=== PATIENT | male | born 1975 | race Caucasian/White ===

== ENCOUNTER 2023-07-14 12:30 | Emergency (ER) | payer BC, SELFPAY ==
[2023-07-14] VITALS (9 sets, daily range): BP systolic 130–155; BP diastolic 72–98; PULSE 68–128; RESP 17–22; TEMP 36.8; O2SAT 92–100; BMI 24.4
[2023-07-14] MEDS: ONDANSETRON 4MG/2ML VIAL 4 MG IV (12:51)
[2023-07-14] MEDS: 0.9 % SODIUM CHLORIDE 1000ML 1,000 ML 999 ML IV (12:51)
--- NOTE | 2023-07-14 13:00 | CT_ITS ---
PROCEDURE INFORMATION: Exam: CT Abdomen And Pelvis With Contrast Exam date and time: 07/14/2023 1:35 PM Age: 48 years old Clinical indication: Abdominal pain; Additional info: Chron's, diffuse pain TECHNIQUE: Imaging protocol: Computed tomography of the abdomen and pelvis with contrast. Radiation optimization: All CT scans at this facility use at least one of these dose optimization techniques: automated exposure control; mA and/or kV adjustment per patient size (includes targeted exams where dose is matched to clinical indication); or iterative reconstruction. Contrast material: ISOVUE; Contrast volume: 75 ml; Contrast route: IV; COMPARISON: No relevant prior studies available. FINDINGS: Liver: Fatty infiltration of the liver. Gallbladder and bile ducts: Normal. No calcified stones. No ductal dilation. Pancreas: Normal. No ductal dilation. Spleen: Normal. No splenomegaly. Adrenal glands: Normal. No mass. Kidneys and ureters: Normal. No hydronephrosis. Stomach and bowel: Mucosal thickening within the distal ascending and transverse colon. No associated inflammatory changes. No proximal obstruction. Likely related to submitted history of Crohn's disease. Terminal ileum normal in appearance. Appendix: No evidence of appendicitis. Intraperitoneal space: Unremarkable. No free air. No significant fluid collection. Vasculature: Unremarkable. No abdominal aortic aneurysm. Lymph nodes: Unremarkable. No enlarged lymph nodes. Urinary bladder: Unremarkable as visualized. Reproductive: Unremarkable as visualized. Bones/joints: Unremarkable. No acute fracture. Soft tissues: Unremarkable. IMPRESSION: Mucosal thickening within the distal ascending and transverse colon. No associated inflammatory changes. No proximal obstruction. Likely related to submitted history of Crohn's disease.
--- NOTE | 2023-07-14 13:02 | HMH.EDGENADL ---
Discharge Plan Disposition Chief Complaint: Nausea/Vomiting/Diarrhea Referrals Follow up/Referrals: Trace Singh [Primary Care Provider] - See instructions Clinical Impressions Clinical Impression: Crohn's colitis Discharge ED Provider: Mychal Izaguirre General Adult HPI General Chief complaint: Nausea/Vomiting/Diarrhea Stated complaint: n/v/d Time Seen by Provider: 07/14/23 12:37 Mode of Arrival: EMS Source of Information: Patient Limitations: No Limitations Description of Symptoms (Recalled from ER Triage Doc. by RN): c/o n/v/d since 6am this morning, states he has a hx of crohns and usually when he has a flare up these are the symptoms that he has, reports having corn last night for supper. History of Present Illness HPI narrative: Patient is a 48-year-old male with past medical history of previous Crohn's disease who presents emergency department for evaluation of abdominal pain, vomiting, diarrhea. Patient states that he has had Crohn's for over a decade, previously on Remicade however has not taken it in many years due to insurance difficulties. He intermittently is on chronic steroids however no other medical therapy. Patient has approximately 2 bowel movements a day, intermittently bloody at baseline. Patient has never had fistulas, has had some laparoscopies however has never had an obstruction, still has his appendix and gallbladder. Since 6 AM this morning he has had diffuse abdominal pain, nonbloody diarrhea, retching and nausea causing him to present here for continued evaluation. Related Data Allergies Allergy/AdvReac Type Severity Reaction Status Date / Time Sulfa (Sulfonamide Allergy Verified 07/14/23 12:41 Antibiotics) [facility] Disclaimer: The information contained in this section may have been updated after the patient was seen, as this information can be updated by other users. Social History Smoking Status: Unknown if ever smoked alcohol intake: never current occupational status: other Travel in the last 8 weeks: None ROS Obtained: Yes Systems reviewed as appropriate & no additional complaints except as documented Physical Exam General General appearance: alert and in distress Head Head exam: atraumatic and normocephalic Eye Eye exam: Present PERRL and EOMI ENT ENT exam: Present mucous membranes moist Neck Neck exam: Present normal inspection Chest Chest inspection: Present normal inspection and symmetric chest wall rise Respiratory Respiratory exam: Present normal lung sounds bilaterally; Absent respiratory distress Cardiovascular Cardiovascular exam: Present regular rate and normal rhythm Abdominal Exam Abdominal exam: Present soft and tenderness (Left periumbilical) exam: Present normal inspection; Absent testicular tenderness or scrotal swelling Extremities Exam Extremities exam: Present normal inspection Neurological Exam Neurological exam: Present alert Psychiatric Psychiatric exam: Present normal affect Skin Skin exam: Present warm and dry Medical Decision Making Richie Inquiry Pt receiving controlled substance: No Vital Signs: 07/14/23 12:31 07/14/23 13:09 07/14/23 13:08 Temperature 98.2 F Temperature Source Oral Pulse Rate 119 H Pulse Rate [Left Radial] 114 H Respiratory Rate 21 20 Blood Pressure 155/92 H Blood Pressure [Right Arm] 143/98 H Blood Pressure Mean 100 Blood Pressure Mean [Right Arm] 113 Blood Pressure Source [Right Arm] Automatic Cuff Blood Pressure Position [Right Arm] Sitting 02 Sat by Pulse Oximetry 100 98 Oxygen Delivery Method Room Air 07/14/23 13:30 07/14/23 14:13 07/14/23 14:30 Temperature Temperature Source Pulse Rate 128 H 127 H 128 H Pulse Rate [Left Radial] Respiratory Rate 22 17 Blood Pressure 155/94 H 139/85 150/96 H Blood Pressure [Right Arm] Blood Pressure Mean 111 103 Blood Pressure Mean [Right Arm] Blood Pressure Source [Right Arm] Blood Pressure Position [Right Arm] 02 Sat by Pulse Oximetry 92 L 92 L 94 L Oxygen Delivery Method Room Air 07/14/23 15:00 07/14/23 15:30 Temperature Temperature Source Pulse Rate 116 H 68 Pulse Rate [Left Radial] Respiratory Rate 19 18 Blood Pressure 132/87 130/78 Blood Pressure [Right Arm] Blood Pressure Mean Blood Pressure Mean [Right Arm] Blood Pressure Source [Right Arm] Blood Pressure Position [Right Arm] 02 Sat by Pulse Oximetry 95 95 Oxygen Delivery Method Lab Data Lab Results 07/14/23 12:24: C-Reactive Protein 14.5 H, Lipase 75 07/14/23 12:48: WBC 20.1 H*, RBC 5.29, Hgb 16.3, Hct 47.7, MCV 90.0, MCH 30.8, MCHC 34.3, RDW 13.0, Plt Count 408, MPV 7.6, Neut % (Auto) 89.9 H, Lymph % (Auto) 6.5 L, [place] % (Auto) 2.5, Eos % (Auto) 0.7, Baso % (Auto) 0.5, Neut # (Auto) 18.1 H, Lymph # (Auto) 1.3, [place] # (Auto) 0.5, Eos # (Auto) 0.1, Baso # (Auto) 0.1, Total Counted 100, Neutrophils % (Manual) 84 H, Lymphocytes % (Manual) 12, Monocytes % (Manual) 4, Platelet Estimate Normal, RBC Morphology Normal, ESR 5, Sodium 142, Potassium 3.7, Chloride 103, Carbon Dioxide 24, Anion Gap 18.7 H, BUN 21 H, Creatinine 0.90, Estimated Creat Clear 110, Estimated GFR 89, Est GFR ( Amer) 108, Glucose 119 H, Calcium 9.2, Total Bilirubin 1.6 H, AST 66 H, ALT 100 H, Alkaline Phosphatase 85, Total Protein 7.5, Albumin 4.6, Globulin 2.9, Albumin/Globulin Ratio 1.6, Lipase 77 07/14/23 13:10: SARS-CoV-2 (PCR) Not detected, Influenza A Untype (PCR) Not detected, Influenza Type B (PCR) Not detected 07/14/23 14:12: Urine Color Yellow, Urine Appearance Clear, Urine pH 7.0, Ur Specific [place] 1.015, Urine Protein Negative, Urine Glucose (UA) Negative, Urine Ketones Negative, Urine Blood Negative, Urine Nitrate Negative, Urine Bilirubin Negative, Urine Urobilinogen 0.2, Ur Leukocyte Esterase Negative, Urine RBC None, Urine WBC Occasional, Ur Squamous Epith Cells Occasional, Urine Bacteria None 07/14/23 12:48 07/14/23 12:48 Orders (Tests/Meds): ED MEDICATIONS Generic Name Dose Route Start Last Admin Trade Name Freq PRN Reason Stop Dose Admin Sodium Chloride 10 ml 07/14/23 13:39 07/14/23 13:39 Sodium Chloride 0.9% 10ml Syr (Rad Only) IV 08/13/23 13:38 10 ml NEEDED PRN Administration Maintain IV Site Discontinued Medications Generic Name Dose Route Start Last Admin Trade Name Freq PRN Reason Stop Dose Admin Acetaminophen 1,000 mg 07/14/23 13:00 07/14/23 13:16 Acetaminophen 1,000mg/100ml Vial IV 07/14/23 13:01 1,000 mg ONCE ONE Administration Hydromorphone HCl 1 mg 07/14/23 13:00 07/14/23 13:16 Hydromorphone 2mg/Ml Syringe IV 07/14/23 13:01 1 mg ONCE ONE Administration Hydromorphone HCl 1 mg 07/14/23 14:13 07/14/23 14:24 Hydromorphone 2mg/Ml Syringe IV 07/14/23 14:14 1 mg ONCE ONE Administration Sodium Chloride 1,000 mls @ 999 mls/hr 07/14/23 12:45 07/14/23 12:51 Sod Chlor 0.9% 1000ml Bag IV 07/14/23 13:45 999 mls/hr .Q1H1M GIRISH Administration Piperacillin Sod/Tazobactam 50 mls @ 100 mls/hr 07/14/23 13:30 07/14/23 14:18 Sod 3.375 gm/ Sodium Chloride IV 07/14/23 13:59 100 mls/hr ONCE ONE Administration Lactated Ringer's 1,000 mls @ 999 mls/hr 07/14/23 14:23 07/14/23 14:56 Lactated Ringer's 1000 Ml Bag IV 07/14/23 15:23 999 mls/hr .Q1H1M ONE Administration Iopamidol 75 ml 07/14/23 13:39 07/14/23 13:39 Iopamidol-370 (76%);100ml Bottle IV 07/14/23 13:40 75 ml ONCE ONE Administration Ketorolac Tromethamine 30 mg 07/14/23 13:00 07/14/23 13:16 Ketorolac 30mg/Ml Vial IV 07/14/23 13:01 30 mg ONCE ONE Administration Methylprednisolone Sodium Succinate 60 mg 07/14/23 14:31 07/14/23 14:58 Methylprednisolone Sod Succ 125mg Vial IV 07/14/23 14:32 60 mg ONCE ONE Administration Ondansetron HCl 4 mg 07/14/23 12:41 07/14/23 12:51 Ondansetron 4mg/2ml Vial IV 07/14/23 12:42 4 mg ONCE ONE Administration ORDERS Category Date Time Status CT abdomen pelvis w con Stat Cat Scan 07/14/23 13:00 Completed CBC w/Auto Diff [Complete Blood Count Auto Diff] Stat Lab 07/14/23 12:48 Completed CMP [Comprehensive Metabolic Panel] Stat Lab 07/14/23 12:48 Completed CRP [C-Reactive Protein] Stat Lab 07/14/23 12:24 Completed ESR [Erythrocyte Sedimentation Rate] Stat Lab 07/14/23 12:48 Completed Lipase Stat Lab 07/14/23 12:24 Completed Lipase Stat Lab 07/14/23 12:48 Completed Rapid PCR Covid and Flu A/B Stat Lab 07/14/23 13:10 Completed UA [Urinalysis and Microscopic] Stat Lab 07/14/23 14:12 Completed Blood Culture Stat Micro 07/14/23 13:48 Received EKG Request [ECG Request] Stat Y 07/14/23 14:15 Ordered ECG Data Tracing #1: Independently interpreted by me, rate is 123, rhythm is regular, axis is normal, no ST elevation in anatomical contiguous leads, QTc 410. Sinus rhythm. Medical Decision Narrative: In summary patient is a 48-year-old male past medical history described above presents emergency department for evaluation abdominal pain in the setting of Crohn's not on medical therapy. Patient is hemodynamically stable nontoxic-appearing upon arrival, appearing in pain. Differential diagnosis includes Crohn's flare, pancreatitis, influenza, fistula formation, among others. Workup will be conducted with hematologic labs, urinalysis, viral swab, CT of the abdomen pelvis IV contrast. Initial interventions include Tylenol, Toradol, crystalloid bolus, Zofran, Dilaudid. Workup reviewed by me, hematologic labs have significant leukocytosis, given this with tachycardia empiric therapy with Zosyn for infection will be conducted. Blood cultures were obtained prior to administration. Remainder of hematologic labs are nonactionable, viral swab negative. Patient does have mild transaminitis and minimal hyperbilirubinemia however no tenderness and no elevated lipase, normal gallbladder on CT imaging and no ductal dilatation. CT imaging does however show mucosal thickening of the ascending and transverse colon. No evidence of obstruction. Upon repeat evaluation patient had persistent significant pain and tachycardia for which Dilaudid will be redosed. Presuming patient has a Crohn's flare as the etiology of his symptoms 60 mg of methylprednisolone will be administered. Patient receives the majority of his care at [facility] therefore the case will be discussed with them regarding management of for transfer given that we have no wildlife management professor. Unfortunately [facility] system is full in all hospitals with multiday wait list and are not accepting transfers at this time. The case was discussed with our hospitalist team here who will not admit the patient secondary to not having gastroenterology. [facility] was contacted and their return call was pending at time of transfer of care to the oncoming physician, Dr. Joshi. Critical Care Critical Care Time Critical Care Time: No
[2023-07-14 13:07] LABS: Basophils # 0.1 K/mm3 (0-0.2); Basophils % 0.5 % (0.1-2.0); Eosinophils # 0.1 K/mm3 (0.0-0.4); Eosinophils % 0.7 % (0.1-12.0); Hematocrit 47.7 % (42.0-52.0); Hemoglobin 16.3 g/dL (14.1-18.0); Lymphocytes # 1.3 K/mm3 (0.7-4.5); Lymphocytes % 6.5 % (10-50); Mean Corpuscular HGB Conc 34.3 g/dL (31.8-35.4); Mean Corpuscular Hemoglobin 30.8 pg (27.0-31.2); Mean Platelet Volume 7.6 fl (7.4-10.4); Monocytes # 0.5 K/mm3 (0.1-1.0); Monocytes % 2.5 % (1.7-9.3); Neutrophils # 18.1 K/mm3 (1.8-7.8); Neutrophils % 89.9 % (37.0-80.0); Platelet Count 408 K/mm3 (142-424); Red Blood Count 5.29 M/mm3 (4.60-6.20); White Blood Count 20.1 K/mm3 (4.8-10.8)
[2023-07-14 13:14] LABS: Coronavirus 19, PCR Not Detected (NotDetected); Influenza A, PCR Not Detected (NotDetected); Influenza B, PCR Not Detected (NotDetected)
[2023-07-14 13:14] LABS: Chloride 103 mmol/L (98-107)
[2023-07-14 13:15] LABS: Potassium 3.7 mmoL/L (3.5-5.1); Sodium 142 mmol/L (136-145)
[2023-07-14 13:16] LABS: MANUAL DIFFERENTIAL MANUAL DIFFERENTIAL (MANUAL DIFF)
[2023-07-14] MEDS: HYDROMORPHONE 2MG/ML SYRINGE 1 MG IV ×3 (13:16→16:15)
[2023-07-14] MEDS: ACETAMINOPHEN 1,000MG/100ML VIAL 1000 MG IV (13:16)
[2023-07-14] MEDS: KETOROLAC 30MG/ML VIAL 30 MG IV (13:16)
[2023-07-14 13:17] LABS: Alanine Aminotransferase 100 U/L (12-78); Alkaline Phosphatase 85 U/L (38-126); Anion Gap 18.7 mEq/L (5-15); Aspartate Amino Transferase 66 U/L (17-59); Bilirubin,Total 1.6 mg/dl (0.2-1.3); Blood Urea Nitrogen 21 mg/dl (9-20); Carbon Dioxide 24 mmol/L (22.0-30.0); Creatinine Clearance Estimated 110 mL/min (50-200); Estimated Glomerular Filt Rate 89 ml/min (>60); GFR (African American) 108 ML/MIN (>60)
[2023-07-14 13:18] LABS: Lipase 75 U/L (23-300)
[2023-07-14 13:18] LABS: Albumin Level 4.6 g/dl (3.5-5.0); Albumin/Globulin Ratio 1.6 (1.1-1.8); Calcium 9.2 mg/dl (8.4-10.2); Globulin 2.9 g/dL (1.3-3.2); Glucose 119 mg/dl (74-100); Lipase 77 U/L (23-300); Total Protein,Serum 7.5 g/dl (6.3-8.2)
[2023-07-14 13:33] LABS: Lymphocytes % 12 % (10-50); Monocytes % 4 % (2-9); Neutrophils % 84 % (42-76); Platelet Estimate Normal; RBC Morphology Normal; Total Cells Counted 100
[2023-07-14] MEDS: IOPAMIDOL-370 (76%);100ML BOTTLE 75 ML IV (13:39)
[2023-07-14] MEDS: SODIUM CHLORIDE 0.9% 10ML SYR (RAD ONLY) 10 ML IV (13:39)
--- NOTE | 2023-07-14 14:00 | PC.NURSE ---
rounded on pt gave him ice chips no other needs,call light at bs
[2023-07-14] MEDS: PIPERACILLIN/TAZO 3.375 GM in 0.9 % SODIUM CHLORIDE 50 ML IV (14:18)
--- NOTE | 2023-07-14 14:21 | ECG_ITS ---
APPROVED REPORT Exam: Resting ECG HR:123 bpm ECG Measurements Heart Rate 123 AXES IL 147 P 64 QRSd 88 QRS 53 QT 337 T 59 QTc 410 Conclusion SINUS TACHYCARDIA POSSIBLE RIGHT VENTRICULAR CONDUCTION DELAY [RSR (QR) IN V1/V2] NONSPECIFIC T-WAVE ABNORMALITY ABNORMAL RHYTHM ECG UNCONFIRMED REPORT Electronically signed by : Axel Kauffman MD 07/15/2023 17:49:36
[2023-07-14 14:33] LABS: C-Reactive Protein 14.5 mg/L (0-4)
[2023-07-14 14:38] LABS: Microscopic, Urine URINE MICROSCOPIC (MICROSCOPIC)
[2023-07-14 14:40] LABS: Appearance,Urine CLEAR (Clear); Bilirubin,Urine Negative (Negative); Blood, Urine Negative (Negative); Color,Urine YELLOW (Yellow); Glucose,Urine (UA) Negative (Negative); Ketones,Urine Negative (Negative); Leukocyte Esterase,Urine Negative (Negative); Nitrate,Urine Negative (Negative); Protein,Urine Negative (Negative); Specific Gravity, Urine 1.015 (1.005-1.030); Urobilinogen,Urine 0.2 EU/dl (0.2)
--- NOTE | 2023-07-14 14:40 | PC.NURSE ---
called [facility] for transfer for GI,no beds available
--- NOTE | 2023-07-14 14:45 | PC.NURSE ---
placed call to [facility] for possible transfer to [place] for GI
[2023-07-14 14:53] LABS: Squamous Epithelial Cell,Urine Occasional #/hpf (0-5); WBC,Urine Occasional #/hpf (0-3)
[2023-07-14] MEDS: LACTATED RINGERS 1000ML 1,000 ML 999 ML IV (14:56)
[2023-07-14] MEDS: METHYLPREDNISOLONE SOD SUCC 125MG VIAL 60 MG IV (14:58)
[2023-07-14 15:01] LABS: Erythrocyte Sedimentation Rate 5 mm/hr (0-15)
--- NOTE | 2023-07-14 15:42 | PC.NURSE ---
Dr Izaguirre spoke with Hospitalist and he would not admit pt., called for [facility] to return call.
== END 2023-07-14 16:20 ==
PROVIDERS: Emergency Provider Emergency Medicine; PCP Pediatrics
DX: K50.918 Crohn's disease, unspecified, with other complication (principal); R11.2 Nausea with vomiting, unspecified; R19.7 Diarrhea, unspecified; R10.9 Unspecified abdominal pain
CPT/HCPCS: 36415; 74177; 80053; 81001; 83690; 85007; 85025; 85651; 86140; 87040; 87636; 93005; 96361; 96365; 96375; 96376; 99285; J0131; J2405; J2543; Q9967